=== PATIENT | male | born 1995 | race Caucasian/White ===

== ENCOUNTER → 2016-07-08 | Outpatient (CLI) | payer OTHER ==
--- NOTE | 2016-07-08 15:02 | ECHOCARDIOGRAM REPORT ---
*NOTICE TO RECEIVING [employer] This information is strictly Confidential and protected under [place] law. [place] law prohibits you from making any further disclosure of this information unless further disclosure is expressly permitted by the written consent of the person to whom it pertains or is authorized by law. A general authorization for the release of medical or other information is not sufficient for this purpose. Hospital accepts no responsibility if the information is made available to any other person, INCLUDING THE PATIENT. Interpretation Summary * Name: CHARLIE ZAMUDIO Study Date: 07/08/2016 02:48 PM BP: 139/73 mmHg * Patient Location: [facility] HR: 72 * : 1995 (M/d/yyyy) Gender: Male Height: 71 in * Age: 21 yrs Ethnicity: CA Weight: 185 lb * Ordering Physician: Ana Leyva * Referring Physician: Ana Leyva * Performed By: Neha Gonzalez RDCS * * Reason For Study: PALPITATIONS * BSA: 2.0 m2 * History: PALPITATIONS * -- Conclusions -- * 1. Normal LV size and wall thickness. * 2. Normal LV function. LVEF 60-65%. No regional wall motion abnormalities. * 3. Normal RV size and function. * 4. No significant valvular abnormalities. * 5. Normal estimated PA and RA pressures. * 6. No prior studies for comparison. Procedure Details * A complete two-dimensional transthoracic echocardiogram was performed (2D, M-mode, Doppler and color flow Doppler). Left Ventricle * The left ventricle is normal in size. * There is normal left ventricular wall thickness. * Ejection Fraction = 60-65%. * No regional wall motion abnormalities noted. Right Ventricle * The right ventricle is grossly normal size. * The right ventricular systolic function is normal as assessed by tricuspid annular plane systolic excursion (TAPSE) (normal >1.5 cm). Atria * The left atrial size is normal. * Right atrial size is normal. * No ASD detected; PFO is not assessed. Mitral Valve * The mitral valve leaflets appear normal. There is no evidence of stenosis, fluttering, or prolapse. * There is trace mitral regurgitation. Tricuspid Valve * The tricuspid valve is not well visualized, but is grossly normal. * There is no tricuspid stenosis. * There is trace tricuspid regurgitation. * Right ventricular systolic pressure is normal. Aortic Valve * The aortic valve opens well. * The aortic valve is trileaflet. * No hemodynamically significant valvular aortic stenosis. * There is no significant aortic regurgitation. Pulmonic Valve * The pulmonary valve is inadequately visualized, but the Doppler data is adequate for interpretation. * Pulmonic stenosis is absent. * Trace pulmonic valvular regurgitation. Great Vessels * The aortic root and proximal ascending aorta are normal sized. * No Doppler or imaging evidence of an aortic coarctation. Pericardium/Pleural * There is no pericardial effusion. Great Vessels * Normal inferior vena cava size and collapsability with sniff indicates a normal right atrial pressure of 3 mmHg MMode 2D Measurements and Calculations IVSd 0.99 cm IVSs 1.6 cm LVIDd 4.8 cm LVIDs 2.9 cm LVPWd 1.0 cm LVPWs 1.3 cm IVS/LVPW 0.96 FS 39.0 % EDV(Teich) 105.6 ml ESV(Teich) 32.3 ml EF(Teich) 69.4 % EDV(cubed) 108.1 ml ESV(cubed) 24.5 ml EF(cubed) 77.3 % % IVS thick 59.8 % % LVPW thick 28.2 % LV mass(C)d 172.1 grams LV mass(C)dI 84.4 grams/m\S\2 LV mass(C)s 144.9 grams LV mass(C)sI 71.0 grams/m\S\2 SV(Teich) 73.3 ml SI(Teich) 35.9 ml/m\S\2 SV(cubed) 83.6 ml SI(cubed) 41.0 ml/m\S\2 LVAd ap4 41.6 cm\S\2 LVLd ap4 9.9 cm EDV(MOD-sp4) 143.0 ml EDV(sp4-el) 148.2 ml LVAs ap4 22.9 cm\S\2 LVLs ap4 8.1 cm ESV(MOD-sp4) 52.8 ml ESV(sp4-el) 55.1 ml EF(MOD-sp4) 63.1 % EF(sp4-el) 62.8 % LVAd ap2 45.4 cm\S\2 LVLd ap2 10.2 cm EDV(MOD-sp2) 167.4 ml EDV(sp2-el) 171.2 ml LVAs ap2 24.2 cm\S\2 LVLs ap2 8.3 cm ESV(MOD-sp2) 58.5 ml ESV(sp2-el) 59.5 ml EF(MOD-sp2) 65.0 % EF(sp2-el) 65.2 % LVLd %diff 3.0 % EDV(MOD-bp) 158.5 ml LVLs %diff 3.5 % ESV(MOD-bp) 56.7 ml EF(MOD-bp) 64.2 % SV(MOD-sp4) 90.2 ml SI(MOD-sp4) 44.2 ml/m\S\2 SV(MOD-sp2) 108.9 ml SI(MOD-sp2) 53.4 ml/m\S\2 SV(MOD-bp) 101.8 ml SI(MOD-bp) 49.9 ml/m\S\2 SV(sp4-el) 93.1 ml SI(sp4-el) 45.6 ml/m\S\2 SV(sp2-el) 111.7 ml SI(sp2-el) 54.7 ml/m\S\2 Doppler Measurements and Calculations MV E max nicolle 75.4 cm/sec MV A max nicolle 47.5 cm/sec MV E/A 1.6 MV dec time 0.34 sec Ao V2 max 134.8 cm/sec Ao max PG 7.3 mmHg Ao max PG (full) 4.1 mmHg LV V1 max PG 3.2 mmHg LV V1 max 89.7 cm/sec TR max nicolle 191.5 cm/sec
== END | disposition home or self-care (01) ==
LOC: C.CPL 13:40
PROVIDERS: ATTEND Internal Medicine
DX: R00.2 Palpitations (principal)